=== PATIENT | female | born 1955 ===

== ENCOUNTER 2017-12-20 07:29 | Outpatient (CLI) | payer OTHER | END 2017-12-20 10:21 | disposition home or self-care (01) | LOC: RAD 07:29 | DX: M25.511 Pain in right shoulder (principal); M25.572 Pain in left ankle and joints of left foot ==

== ENCOUNTER 2017-12-20 08:17 | Outpatient (CLI) | payer OTHER | END 2017-12-20 09:00 | disposition home or self-care (01) | LOC: NUCLEAR 08:17 | DX: M25.50 Pain in unspecified joint (principal); M25.511 Pain in right shoulder; I87.2 Venous insufficiency (chronic) (peripheral); I83.008 Varicose veins of unspecified lower extremity with ulcer other part of lower leg ==

== ENCOUNTER 2018-08-10 09:51 | Outpatient (CLI) | payer OTHER | END 2018-08-10 16:06 | disposition home or self-care (01) | LOC: SONOGRAMA 09:51 | DX: M25.572 Pain in left ankle and joints of left foot (principal); M25.472 Effusion, left ankle ==